=== PATIENT | female | born 1990 | race Caucasian/White ===

== ENCOUNTER 2017-09-21 10:49 | Emergency (ER) | payer OTHER ==
[~2017-09-21] VITALS: Ht 154.9 cm; Wt 86.2 kg
== END 2017-09-21 15:22 | disposition home or self-care (01) ==
LOC: ER 10:49
DX: J22 Unspecified acute lower respiratory infection (principal)

== ENCOUNTER 2025-05-12 16:00 | Day surgery (SDC) | payer OTHER ==
[2025-05-12] MEDS ORDERED: DICLOFENAC SODIUM 100 MG SUPP.RECT RECTAL STA (17:38)
== END 2025-05-12 21:25 | disposition designated cancer center or children's hospital (05) ==
LOC: AMB-ERCP 16:00 → LAB 05-13 13:14 → EDSTATUS 05-13 14:29 → AMB-ERCP 05-13 14:31
PROVIDERS: ATTEND Internal Medicine
DX: K80.50 Calculus of bile duct without cholangitis or cholecystitis without obstruction (principal); R93.2 Abnormal findings on diagnostic imaging of liver and biliary tract
CPT/HCPCS: 43274; C1748

== ENCOUNTER 2025-07-10 06:00 | Day surgery (SDC) | payer OTHER ==
[2025-07-07 08:22] VITALS: BP 128/84
[2025-07-07 08:34] LABS: BASO % 1.0 % (0.1-1.2); EOS # 0.17 (0.04-0.54); EOS % 2.2 % (0.7-7.0); LYMPH # 1.90 (1.18-3.74); LYMPH % 24.1 % (19.3-53.1); MEAN PLATELET VOLUME 9.30 fl (9.4-12.4); MONO # 0.72 (0.24-0.82); MONO % 9.1 % (4.7-12.5); NEUT # 4.98 (1.56-6.13); NEUT % 63.3 % (34.0-71.1); RED CELL DISTRIBUTION WIDTH 16.7 % (11.6-14.4)
[2025-07-07 09:03] LABS: INR 1.01
[2025-07-07 09:21] LABS: ALT/SGPT 26.0 U/L (12-78); AST/SGOT 10.0 U/L (15-37); BILIRUBIN TOTAL 0.28 mg/dL (0.3-1.2); BUN CREA RATIO 24.0 (7.0-25.0); CREATININE SERUM 0.68 mg/dL (0.55-1.02); GFR 98.46; GLOBULINA 3.9 G/DL (2.4-3.5); GLUCOSE FASTING 100.0 mg/dL (65-100); OSMOLALITY SERUM 286.0 MOSM/KG (275-295)
[~2025-07-10] VITALS: Ht 152.4 cm; Wt 94.3 kg
[2025-07-10] MEDS ORDERED: GLUCAGON 1 MG VIAL ONE (07:52)
[2025-07-10] MEDS ORDERED: IOVERSOL 320 MG/ML - 50 ML VIAL IV ONE (07:52)
== END 2025-07-10 11:20 | disposition home or self-care (01) ==
LOC: CIR.AMB 06:00
PROVIDERS: ATTEND Internal Medicine
DX: K83.2 Perforation of bile duct (principal); T85.590A Other mechanical complication of bile duct prosthesis, initial encounter; K91.81 Other intraoperative complications of digestive system